=== PATIENT | female | born 2000 | race Caucasian/White ===

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

== ENCOUNTER 2019-01-15 12:19 | Emergency (ER) | payer OTHER ==
[2019-01-15 12:25] VITALS: RESP 20
[2019-01-15] MEDS ORDERED: Sodium Chloride 0.9% 1,000 ML IV ONE (12:40)
--- NOTE | 2019-01-15 12:52 | C.PDOC ---
History Of Present Illness 18 year old female presents to the ED complaining of not feeling well for one week. Associated symptoms include abdominal pain and nausea that felt worse today. Denies any fever, chills, chest pain, back pain, urinary symptoms, diarr hea, or any other complaints. LNMP: 12/26/2018. Time Seen by Provider: 01/15/19 12:29 Chief Complaint (Nursing): Abdominal Pain History Per: Patient History/Exam Limitations: no limitations Onset/Duration Of Symptoms: Days Current Symptoms Are (Timing): Still Present Location Of Pain/Discomfort: Diffuse Radiation Of Pain To:: None Quality Of Discomfort: "Pain" Associated Symptoms: Nausea. denies: Fever, Chills, Vomiting, Diarrhea, Back Pain, Chest Pain, Urinary Symptoms Abnormal Vaginal Bleeding: No Last Menstral Period: 12/26/18 Past Medical History Reviewed: Historical Data, Nursing Documentation, Vital Signs Vital Signs: Last Vital Signs Temp 98.7 F 01/15/19 12:22 Pulse 75 01/15/19 12:22 Resp 20 01/15/19 12:22 BP 119/80 01/15/19 12:22 Pulse Ox 99 01/15/19 12:22 - Medical History PMH: Back Problems (DOUBLE SCOLIOSIS) Surgical History: No Surg Hx Family History: States: No Known Family Hx - Social History Hx Tobacco Use: No Hx Alcohol Use: No Hx Substance Use: No - Immunization History Hx Tetanus Toxoid Vaccination: No Hx Influenza Vaccination: No Hx Pneumococcal Vaccination: No Review Of Systems Except As Marked, All Systems Reviewed And Found Negative. Constitutional: Negative for: Fever, Chills Cardiovascular: Negative for: Chest Pain Respiratory: Negative for: Shortness of Breath Gastrointestinal: Positive for: Nausea, Abdominal Pain. Negative for: Vomiting, Diarrhea Genitourinary: Negative for: Dysuria, Hematuria, Vaginal Discharge, Vaginal Bleeding Musculoskeletal: Negative for: Back Pain Neurological: Negative for: Headache Physical Exam - Physical Exam Appears: Non-toxic, No Acute Distress Skin: Warm, Dry, No Rash Head: Normacephalic Eye(s): bilateral: Normal Inspection Nose: Normal Oral Mucosa: Moist Throat: Normal Neck: Supple Chest: Symmetrical Cardiovascular: Rhythm Regular Respiratory: Normal Breath Sounds, No Rales, No Rhonchi, No Wheezing Gastrointestinal/Abdominal: Soft, Tenderness (suprapubic tenderness ), No Dist ention, No Guarding, No Rebound Extremity: Bilateral: Atraumatic, Normal Color And Temperature, Normal ROM Neurological/Psych: Oriented x3, Normal Speech Gait: Steady ED Course And Treatment - Laboratory Results Result Diagrams: 01/15/19 12:55 01/15/19 12:55 Lab Interpretation: Normal Urine POC: Negative O2 Sat by Pulse Oximetry: 99 (RA) Pulse Ox Interpretation: Normal - CT Scan/US No standard instances Other Rad Studies (CT/US): Read By Radiologist, Radiology Report Reviewed CT/US Interpretation: HISTORY: vaginal bleeding, urine hCG negative. COMPARISON: None available. TECHNIQUE: Real-time transabdominal pelvic ultrasound was performed. In addition a transvaginal pelvic ultrasound was necessary to better depict pelvic anatomy. FINDINGS: UTERUS: Measures 8.2 x 3.5 x 3.9 cm. Anteverted. ENDOMETRIUM: Measures 1.1 cm in diameter. CERVIX: No cervical abnormality identified. RIGHT OVARY: Measures 2.7 x 2.1 x 2.9 cm. Blood flow is demonstrated. LEFT OVARY: Measures 4.6 x 2.1 x 4.0 cm. Blood flow is demonstrated. 2.6 x 1.8 x 2.5 cm complex appearing cyst. FREE FLUID: Fluid evident within the cul-de-sac and extending 2 bilateral adnexa. OTHER FINDINGS: None. IMPRESSION: 2.8 x 1.8 x 2.5 cm complex appearing left ovarian cyst. Evidence of fluid within the cul-de-sac extending to bilateral adnexa suspicious for ruptured ovarian cyst. Correlate clinically. Suggest six week ultrasound follow-up. Progress Note: Treated with IVF NSS and toradol. On re-evaluation abdomen soft non-tender Reassessment Condition: Improved Medical Decision Making Medical Decision Making: Plan - Bloodwork - IV fluids - HCG - UA Disposition Counseled Patient/Family Regarding: Studies Performed, Diagnosis, Need For Followup, Rx Given - Disposition [facility] [Outside] [facility] [Outside] Disposition: HOME/ ROUTINE Disposition Time: 15:30 Condition: IMPROVED Additional Instructions: Tylenol or motrin as needed Return to ED if any increase symptoms Instructions: Ovarian Cysts, Acute Abdomen (Belly Pain), Adult (DC), Acute Pelvic Pain (DC) Forms: [employer] (Latvian) - POA Present On Arrival: None - Clinical Impression Clinical Impression: Abdominal pain, Ovarian cyst - PA / HALL PORTER / Resident Statement MD/DO has reviewed & agrees with the documentation as recorded. - Scribe Statement The provider has reviewed the documentation as recorded by the Scribe Ileana Pantoja All medical record entries made by the Sajiibe were at my direction and personally dictated by me. I have reviewed the chart and agree that the record accurately reflects my personal performance of the history, physical exam, medical decision making, and the department course for this patient. I have also personally directed, reviewed, and agree with the discharge instructions and disposition.
[2019-01-15 13:04] LABS: BASO # 0.1 K/uL (0.0-0.2); BASO % 0.8 % (0.0-2.0); EOS % 0.4 % (0.0-4.0); HEMOGLOBIN 13.6 g/dL (11.0-16.0); LYMPH # 1.2 K/uL (1.0-4.3); LYMPH % 18.9 % (20.0-40.0); MEAN CELL VOLUME 89.6 fL (81.0-99.0); MEAN CORPUSCULAR HEMOGLOBIN 30.8 pg (27.0-31.0); MEAN CORPUSCULAR HGB CONC 34.4 g/dL (33.0-37.0); MEAN PLATELET VOLUME 7.6 fL (7.2-11.7); MONO # 0.5 K/uL (0.0-0.8); MONO % 8.9 % (0.0-10.0); NEUT # 4.4 K/uL (1.8-7.0); NRBC % 0.1 % (0.0-2.0); RBC 4.41 Mil/uL (3.80-5.20); RED CELL DISTRIBUTION WIDTH 12.8 % (11.5-14.5); WHITE BLOOD COUNT 6.2 K/uL (4.8-10.8)
[2019-01-15 13:08] LABS: HCG,QUALITATIVE URINE NEGATIVE (NEGATIVE)
[2019-01-15 13:16] LABS: SQUAMOUS EPITHIAL 8 /hpf (0-5); URINE BACTERIA RARE (<OCC); URINE BILIRUBIN NEGATIVE (NEGATIVE); URINE BLOOD 1+ (NEGATIVE); URINE CLARITY Hazy (Clear); URINE COLOR Straw (YELLOW); URINE GLUCOSE (UA) NORMAL (Normal); URINE LEUKOCYTE ESTERASE TRACE Leu/uL (Negative); URINE PROTEIN NEGATIVE (NEGATIVE); URINE UROBILINOGEN NORMAL mg/dL (0.2-1.0)
[2019-01-15 13:18] LABS: ALB/GLOB RATIO 1.6 (1.0-2.1); ALBUMIN 4.6 g/dL (3.5-5.0); ALT/SGPT 24 U/L (9-52); AST/SGOT 28 U/L (14-36); BLOOD UREA NITROGEN 13 mg/dL (7-17); CALCIUM 9.8 mg/dl (8.6-10.4); GFR NON-AFRICAN AMERICAN > 60; LIPASE 46 U/L (23-300)
--- NOTE | 2019-01-15 15:17 | US ---
Date of service: 01/15/2019 HISTORY: vaginal bleeding, urine hCG negative COMPARISON: None available. TECHNIQUE: Real-time transabdominal pelvic ultrasound was performed. In addition a transvaginal pelvic ultrasound was necessary to better depict pelvic anatomy. FINDINGS: UTERUS: Measures 8.2 x 3.5 x 3.9 cm. Anteverted. ENDOMETRIUM: Measures 1.1 cm in diameter. CERVIX: No cervical abnormality identified. RIGHT OVARY: Measures 2.7 x 2.1 x 2.9 cm. Blood flow is demonstrated. LEFT OVARY: Measures 4.6 x 2.1 x 4.0 cm. Blood flow is demonstrated. 2.6 x 1.8 x 2.5 cm complex appearing cyst. FREE FLUID: Fluid evident within the cul-de-sac and extending 2 bilateral adnexa. OTHER FINDINGS: None. IMPRESSION: 2.8 x 1.8 x 2.5 cm complex appearing left ovarian cyst. Evidence of fluid within the cul-de-sac extending to bilateral adnexa suspicious for ruptured ovarian cyst. Correlate clinically. Suggest six week ultrasound follow-up.
[2019-01-15 15:59] VITALS: BP 107/59; PULSE 77; TEMP 98.3
[2019-01-15 17:55] VITALS: O2SAT 99
== END 2019-01-15 16:02 | disposition home or self-care (01) ==
LOC: C.ER 12:19
DX: R10.9 Unspecified abdominal pain (principal); N83.202 Unspecified ovarian cyst, left side
CPT/HCPCS: 76830; 76856; 80053; 81001; 83690; 84703; 85025; 96361; 96374; 99285; J1885; J7030